=== PATIENT | male | born 1945 ===

== ENCOUNTER 2019-02-07 07:27 | Day surgery (SDC) | payer OTHER ==
[~2019-02-07] VITALS: Ht 170.2 cm; Wt 93.7 kg
[~2019-02-07 07:27] MED LIST: TAMS.4ER PO
[2019-02-07] MEDS ORDERED: LOSA25 (08:04)
== END 2019-02-07 09:45 | disposition home or self-care (01) ==
LOC: ORSCSDS 07:27
PROVIDERS: Internal Medicine Gastroenterology
PROC: 0DBE8ZX Excision of Large Intestine, Via Natural or Artificial Opening Endoscopic, Diagnostic (ICD-10-PCS; principal; 2019-02-07 08:45)
DX: R19.7 Diarrhea, unspecified (principal); K57.30 Diverticulosis of large intestine without perforation or abscess without bleeding; K62.7 Radiation proctitis; K64.8 Other hemorrhoids; I10 Essential (primary) hypertension; Z79.899 Other long term (current) drug therapy; Z85.46 Personal history of malignant neoplasm of prostate
CPT/HCPCS: 88305; J2704; J7120

== ENCOUNTER → 2019-04-26 | Outpatient (CLI) | payer OTHER ==
[~2019-04-26] MED LIST changes: +LOSA25
== END ==
LOC: PLD 08:42 → LAB SHORT 08:42
DX: L82.1 Other seborrheic keratosis (principal)
CPT/HCPCS: 88305

== ENCOUNTER 2022-12-22 06:42 | Day surgery (SDC) | payer OTHER ==
[~2022-12-22] VITALS: Ht 170.2 cm; Wt 96.5 kg
[2022-12-22] MEDS ORDERED: IBUP600 PO (07:01)
--- NOTE | 2022-12-22 07:08 | NUR ---
12/22/22 0708 Shaun De Souza CALL LIGHT WITHIN REACH. TETRACAINE IN AT 0700 IN THE LEFT EYE AND PLEDGETT IN AT 0702
== END 2022-12-22 08:56 | disposition home or self-care (01) ==
LOC: ORSCSDS 06:42
PROVIDERS: Student in an Organized Health Care Education/Training Program
PROC: 08DK3ZZ Extraction of Left Lens, Percutaneous Approach (ICD-10-PCS; principal; 2022-12-22 08:00)
DX: H25.13 Age-related nuclear cataract, bilateral (principal); I10 Essential (primary) hypertension; H40.1134 Primary open-angle glaucoma, bilateral, indeterminate stage; H11.002 Unspecified pterygium of left eye; Z79.899 Other long term (current) drug therapy
CPT/HCPCS: J2001; J2250; J3010; J7040; V2632

== ENCOUNTER 2023-01-12 06:23 | Day surgery (SDC) | payer OTHER ==
[~2023-01-12] VITALS: Ht 170.2 cm; Wt 94.3 kg
[~2023-01-12 06:23] MED LIST changes: +IBUP600 PO
--- NOTE | 2023-01-12 06:50 | NUR ---
01/12/23 0650 Shaun De Souza CALL LIGHT WITHIN REACH. TETRACAINE IN RIGHT EYE AT 0643 AND PLEDGETT IN AT 0644
[2023-01-12 09:04] VITALS: BP 136/75
--- NOTE | 2023-01-12 09:06 | NUR ---
01/12/23 0906 CamarilloThalia cruz IV DISCONTINUED PRIOR TO DISCHARGE, SITE ASSESSMENT WNL
== END 2023-01-12 09:00 | disposition home or self-care (01) ==
LOC: ORSCSDS 06:23
PROVIDERS: Student in an Organized Health Care Education/Training Program
PROC: 08RJ3JZ Replacement of Right Lens with Synthetic Substitute, Percutaneous Approach (ICD-10-PCS; principal; 2023-01-12 08:00)
DX: H25.11 Age-related nuclear cataract, right eye (principal); Z96.1 Presence of intraocular lens; I10 Essential (primary) hypertension; Z79.899 Other long term (current) drug therapy; E66.9 Obesity, unspecified; Z68.32 Body mass index [BMI] 32.0-32.9, adult
CPT/HCPCS: J2001; J2250; J3010; J7040; V2632